=== PATIENT | female | born 1995 | race Caucasian/White ===

== ENCOUNTER 2019-01-02 10:03 | Emergency (ER) | payer MEDICAID ==
[~2019-01-02] VITALS: Ht 165.1 cm; Wt 55.8 kg
[2019-01-02 10:05] VITALS: BP_SYST 87
--- NOTE | 2019-01-02 10:05 | NUR ---
BROUGHT BACK TO BED #5 AND TRIAGED. REPORT GIVEN TO JERI
--- NOTE | 2019-01-02 10:20 | NUR ---
PATIENT CAME IN COMPLAINING OF LEFT SHOULDER PAIN 01/30 THAT STARTED YESTERDAY IN [place]. PATIENT STATES PAIN GOT WORST NIGHT WENT ON. PATIENT STATES SHE WAS MOVING SHOULDER WHEN SH FELT POP AND NOW HAS NUMB AND TINGLING IN LEFT ARM. PATIENT STATES SHE DIDNT TAKE PAIN MEDS. PATIENT NOT ABLE TO MOVE SHOULD BECAUSE OF PAIN. PATIENT DENIES SOB, NAUSEA, AND VOMITING. PATIENT ALERT AND ORIENTED X4.
--- NOTE | 2019-01-02 10:25 | NUR ---
PATIENT LEFT TO X RAY IN STABLE CONDITION.
--- NOTE | 2019-01-02 10:31 | NUR ---
PATIENT BACK FROM X RAY IN STABLE CONDITION.
--- NOTE | 2019-01-02 11:18 | NUR ---
ER Dr. POWERS at bedside examining patient.
[2019-01-02] MEDS ORDERED: KETOROLAC TROMETHAMINE 60 MG/2 ML VIAL IM ONE (11:30)
[2019-01-02 11:53] VITALS: BP_SYST 98
--- NOTE | 2019-01-02 11:53 | NUR ---
Patient given written and verbal discharge instructions and verbalizes understanding. ER MD discussed with patient the results and treatment provided. Patient in stable condition. ID arm band removed. Rx of MOTRIN given. Patient educated on pain management and to follow up with PMD. Pain Scale 3/10 TOLERABLE. Opportunity for questions provided and answered. Medication side effect fact sheet provided.
== END 2019-01-02 11:53 | disposition home or self-care (01) ==
LOC: SED 10:03
DX: M25.512 Pain in left shoulder (principal); R20.0 Anesthesia of skin; R20.2 Paresthesia of skin
CPT/HCPCS: 73030; 96372; 99283; J1885